=== PATIENT | male | born 1960 | race African-American/Black ===

== ENCOUNTER 2019-03-24 18:35 | Emergency (ER) | payer OTHER ==
[~2019-03-24] VITALS: Ht 177.8 cm; Wt 70.0 kg
[2019-03-24 18:41] VITALS: BP 165/103
[2019-03-24] MEDS ORDERED: HTN MED X2 (18:56)
[2019-03-24] MEDS ORDERED: SPIRIVA (18:56)
--- NOTE | 2019-03-24 18:58 | NUR ---
PT BIBA FOR RIGHT SIDED INGUINAL HERNIA PAIN. HX BILAT INGUINAL HERNIAS. PT STATES HERNIA "POPPED OUT TODAY AND WON'T GO BACK IN." PT STATES HE WILL BE BACK IN [place] IN A FEW DAYS AND WILL GET SURGERY THEN. PT CONNECTED TO [facility]. VSS. DR. PUGH TO BS FOR ASSESSMENT. EDMD WHITNEY TO REDUCE BILAT HERNIAS AT BS. PER EDMD, PLAN TO OBS FOR AT LEAST HLAF AN HOUR. PT CALM AND WATCHING TV AT THIS TIME.
--- NOTE | 2019-03-24 19:40 | NUR ---
pt up to rr. pt states bilat hernias are "popped back out." will notify edmd.
[2019-03-24] MEDS ORDERED: IBUPROFEN 800 MG TABLET ONE (20:44)
[2019-03-24] MEDS ORDERED: IBUPROFEN 800 MG TABLET PO ONE (21:00)
--- NOTE | 2019-03-24 21:03 | NUR ---
PT UPSET WHEN OFFERED PAIN MEDICATION. PT STATES HE CANNOT TAKE IBUPROFEN AND STATED HE WAS "JUST GOING TO CHECK OUT." PT SIGNED AMA FORM AND GOT DRESSED. PT DEMANDED TAXI VOUCHER. TAXI VOUCHER PROVIDED BUT PT DOESN'T KNOW WHERE HE WANTS TO GO. ANOTHER RN ATTEMPTED TO ASK PT ADDRESS WHERE TAXI CAN TAKE HIM AND WAS ABLE TO OBTAIN A LOCATION. PT ESCORTED TO EXIT WITHOUT ISSUES.
== END 2019-03-24 21:11 | disposition home or self-care (01) ==
LOC: ED 18:51
DX: R10.30 Lower abdominal pain, unspecified (principal); J45.909 Unspecified asthma, uncomplicated; F17.200 Nicotine dependence, unspecified, uncomplicated
CPT/HCPCS: 99283

== ENCOUNTER 2019-04-09 16:21 | Emergency (ER) | payer OTHER ==
[~2019-04-09] VITALS: Ht 177.8 cm; Wt 80.0 kg
[~2019-04-09 16:21] MED LIST: HTN MED X2; SPIRIVA
--- NOTE | 2019-04-09 16:41 | NUR ---
GOWN PROVIDED, PT ATTEMPTING TO REDUCE HERNIA ON OWN. CALL LIGHT WITHIN REACH.
--- NOTE | 2019-04-09 17:07 | NUR ---
REPORT TO AMPARO ANGULO, TRANSFER OF CARE AT THIS TIME.
[2019-04-09 17:35] VITALS: BP 176/96
== END 2019-04-09 17:38 | disposition home or self-care (01) ==
LOC: ED 17:32
DX: K40.21 Bilateral inguinal hernia, without obstruction or gangrene, recurrent (principal); R10.32 Left lower quadrant pain; R10.31 Right lower quadrant pain; J45.909 Unspecified asthma, uncomplicated; F17.200 Nicotine dependence, unspecified, uncomplicated
CPT/HCPCS: 99283

== ENCOUNTER 2019-04-11 01:51 | Observation (INO) | payer OTHER ==
[~2019-04-11] VITALS: Ht 177.8 cm; Wt 77.0 kg
--- NOTE | 2019-04-11 01:58 | NUR ---
BIB [facility] WITH ROOM AIR SATS AT 83%. EMS GAVE 2 NEB TREATMENTS. PT WAS SEEN HERE RECENTLY FOR INGUINAL HERNIAS. PT IN ACUTE DISTRESS. ER MD CASTILLO IN TO ASSESS
[2019-04-11] MEDS ORDERED: HYDROmorphone 1 MG/ML, 1ML VIAL ONE (02:00)
[2019-04-11] MEDS ORDERED: HYDROmorphone 1 MG/ML, 1ML VIAL IVPush PRN (02:30)
--- NOTE | 2019-04-11 02:34 | NUR ---
PT CALMED AND REPORTS PAIN RELIEF AFTER MEDICATION FOR PAIN
[2019-04-11 02:42] LABS: BASOPHILS # (AUTO) 0.05 x10^3/uL (0-0.1); BASOPHILS % (AUTO) 1 % (0-1); EOSINOPHILS # (AUTO) 0.25 x10^3/uL (0-0.4); EOSINOPHILS % (AUTO) 4 % (1-7); LYMPHOCYTES # (AUTO) 2.11 x10^3/uL (1-3.4); LYMPHOCYTES % (AUTO) 30 % (22-44); MD NO; MEAN CORPUSCULAR HEMOGLOBIN 25.2 pg (27.5-34.5); MEAN CORPUSCULAR HGB CONC 31.3 g/dL (33.2-36.2); MEAN CORPUSCULAR VOLUME 80.5 fL (81-97); MEAN PLATELET VOLUME 6.9 fL (7.4-10.4); MONOCYTES # (AUTO) 0.56 x10^3/uL (0.2-0.8); MONOCYTES % (AUTO) 8 % (2-9); NEUTROPHILS # (AUTO) 4.09 x10^3/uL (1.8-6.8); NEUTROPHILS % (AUTO) 58 % (42-75); PLATELET COUNT 288 x10^3/uL (130-400); RED BLOOD COUNT 4.49 x10^6/uL (4.38-5.82); RED CELL DISTRIBUTION WIDTH 15.9 % (9.4-14.8)
[2019-04-11 02:50] LABS: ALBUMIN 3.6 g/dL (3.4-5.0); ANION GAP 6 mmol/L (5-15); CALCIUM 8.6 mg/dL (8.5-10.1); CHLORIDE 108 mmol/L (98-107); CREATININE 1.51 mg/dL (0.7-1.3)
[2019-04-11 02:54] LABS: TROPONIN I 0.109 ng/mL (0.000-0.045)
[2019-04-11] MEDS ORDERED: methylPREDNISolone SOD SUCC 125 MG/2 ML ONE (03:19)
--- NOTE | 2019-04-11 03:25 | NUR ---
PT RESTLESS AND STATES THAT HIS PAIN IS RETURNING. PT STILL REQUIRING O2 VIA NC @ 3L. PT AT 85% ON ROOM AIR.
[2019-04-11] MEDS ORDERED: AZITHROMYCIN 500 MG in SODIUM CHLORIDE 0.9% 250 ML IVPB ONE (03:30)
[2019-04-11] MEDS ORDERED: methylPREDNISolone SOD SUCC 125 MG/2 ML IVPush ONE (03:30)
[2019-04-11] MEDS ORDERED: BISACODYL 10 MG SUPP PR PRN (04:00)
[2019-04-11] MEDS ORDERED: ONDANSETRON 2MG/ML, 2ML IVPush PRN (04:00)
[2019-04-11] MEDS ORDERED: OXYcodone IR 5MG TABLET PO PRN (04:00)
[2019-04-11] MEDS ORDERED: DOCUSATE 100 MG CAPSULE PO PRN (04:00)
[2019-04-11] MEDS ORDERED: ONDANSETRON ODT 4 MG PO PRN (04:00)
[2019-04-11] MEDS ORDERED: hydrALAzine 20 MG/ML, 1ML IVPush PRN (04:00)
[2019-04-11] MEDS ORDERED: NITROGLYCERIN 0.4 MG BOTTLE (25 TABS) SL PRN (04:00)
[2019-04-11] MEDS: NICOTINE 7 MG/24 HR PATCH.TD24 TD SCH (04:00)
[2019-04-11] MEDS ORDERED: POLYETHYLENE GLYCOL 17 GM PACKET PO PRN (04:00)
[2019-04-11] MEDS ORDERED: PROMETHAZINE 25 MG/ML, 1ML IM PRN (04:00)
[2019-04-11] MEDS ORDERED: ACETAMINOPHEN 325 MG TABLET PO PRN (04:00)
--- NOTE | 2019-04-11 04:03 | NUR ---
REPORT TO KEV CRAIG
[2019-04-11 04:21] VITALS: BP 159/109
[2019-04-11 04:50] LABS: FREE T4 (FREE THYROXINE) 1.08 ng/dL (0.76-1.46)
[2019-04-11] MEDS: methylPREDNISolone SOD SUCC 125 MG/2 ML IVPush SCH ×4 (04:51→21:13)
[2019-04-11] MEDS: HEPARIN 5,000 UNITS/ML, 1ML SQ SCH ×3 (04:52→21:19)
[2019-04-11] MEDS: AMLODIPINE 5 MG TABLET PO SCH ×3 (04:52→21:12)
[2019-04-11 05:13] LABS: MICROSCOPIC NOT IND
[2019-04-11 05:15] LABS: CULTURE INDICATED? NO
[2019-04-11 05:28] LABS: AMPHETAMINE SCREEN, URINE Negative (Negative); BARBITURATE SCREEN, URINE Negative (Negative); BENZODIAZEPINE SCREEN, URINE Negative (Negative); CANNABINOID SCREEN, URINE Positive (Negative); COCAINE SCREEN, URINE Negative (Negative)
[2019-04-11 05:32] LABS: METHADONE SCREEN, URINE Negative (Negative); OPIATE SCREEN, URINE Positive (Negative)
[2019-04-11] MEDS: CARVEDILOL 3.125 MG TABLET PO SCH ×2 (05:44→17:30)
[2019-04-11] MEDS: ASPIRIN 325 MG TABLET EC PO SCH (05:44)
[2019-04-11 06:13] LABS: TROPONIN I 0.101 ng/mL (0.000-0.045)
[2019-04-11] MEDS: ALBUTEROL SULFATE 2.5 MG/3 ML NPPB SCH ×4 (06:46→18:51)
[2019-04-11 07:40] VITALS: BP 161/95
[2019-04-11] MEDS: morphine SULFATE 10 MG/ML, 1ML IVPush PRN ×5 (07:55→21:13)
[2019-04-11 12:49] LABS: TROPONIN I 0.098 ng/mL (0.000-0.045)
[2019-04-11 13:38] VITALS: BP 160/97
[2019-04-11 20:27] VITALS: BP 149/91
[2019-04-12] MEDS: morphine SULFATE 10 MG/ML, 1ML IVPush PRN ×2 (01:00→04:59)
[2019-04-12 01:14] VITALS: BP 156/95
[2019-04-12] MEDS: NICOTINE 7 MG/24 HR PATCH.TD24 TD SCH (03:34)
[2019-04-12] MEDS: HEPARIN 5,000 UNITS/ML, 1ML SQ SCH (04:59)
[2019-04-12] MEDS: methylPREDNISolone SOD SUCC 125 MG/2 ML IVPush SCH ×2 (04:59→10:59)
[2019-04-12] MEDS: CARVEDILOL 3.125 MG TABLET PO SCH (05:00)
[2019-04-12] MEDS: ASPIRIN 325 MG TABLET EC PO SCH (05:00)
[2019-04-12 05:28] LABS: BASOPHILS # (AUTO) 0.02 x10^3/uL (0-0.1); BASOPHILS % (AUTO) 0 % (0-1); EOSINOPHILS # (AUTO) 0.05 x10^3/uL (0-0.4); EOSINOPHILS % (AUTO) 1 % (1-7); LYMPHOCYTES % (AUTO) 9 % (22-44); MD NO; MEAN CORPUSCULAR HEMOGLOBIN 25.5 pg (27.5-34.5); MEAN CORPUSCULAR HGB CONC 31.4 g/dL (33.2-36.2); MEAN CORPUSCULAR VOLUME 81.1 fL (81-97); MONOCYTES # (AUTO) 0.32 x10^3/uL (0.2-0.8); MONOCYTES % (AUTO) 3 % (2-9); NEUTROPHILS # (AUTO) 8.61 x10^3/uL (1.8-6.8); NEUTROPHILS % (AUTO) 87 % (42-75); PLATELET COUNT 270 x10^3/uL (130-400); RED BLOOD COUNT 4.01 x10^6/uL (4.38-5.82); RED CELL DISTRIBUTION WIDTH 15.8 % (9.4-14.8)
[2019-04-12 05:35] LABS: ALBUMIN 3.3 g/dL (3.4-5.0); ANION GAP 5 mmol/L (5-15); CALCIUM 8.7 mg/dL (8.5-10.1); CHLORIDE 102 mmol/L (98-107)
[2019-04-12 05:39] LABS: ALANINE AMINOTRANSFERASE 21 U/L (12-78); ALKALINE PHOSPHATASE 53 U/L (45-117); BILIRUBIN,TOTAL 0.3 mg/dL (0.2-1.0); CHOLESTEROL, TOTAL 185 mg/dL (140-239); HDL CHOL % 34 % (26-37); HDL CHOLESTEROL (DIRECT) 62 mg/dL (40-60); LDL CHOLESTEROL,CALCULATED 111 mg/dL (54-169); LDL/HDL RATIO 1.8 (0.5-3.0); TOTAL PROTEIN 7.6 g/dL (6.4-8.2); TRIGLYCERIDES 62 mg/dL (50-200); VLDL CHOLESTEROL 12 mg/dL (0-25)
[2019-04-12] MEDS: ALBUTEROL SULFATE 2.5 MG/3 ML NPPB SCH ×2 (06:38→10:26)
[2019-04-12 08:32] VITALS: BP 158/97
[2019-04-12] MEDS: AMLODIPINE 5 MG TABLET PO SCH (10:59)
[2019-04-12 11:18] VITALS: BP 153/94
[2019-04-12] MEDS ORDERED: OXYcodone/APAP 5/325MG TABLET PO PRN (13:30)
== END 2019-04-12 13:50 | disposition left against medical advice (07) ==
LOC: ED 02:40 → EDIP 03:47 → INTOOBSV 03:47 → 5SO 04:11
PROVIDERS: ADMIT Internal Medicine; ATTEND Family Medicine
DX: J44.1 Chronic obstructive pulmonary disease with (acute) exacerbation (principal); I21.A1 Myocardial infarction type 2; N17.0 Acute kidney failure with tubular necrosis; D50.9 Iron deficiency anemia, unspecified; D53.9 Nutritional anemia, unspecified; F17.210 Nicotine dependence, cigarettes, uncomplicated; G89.29 Other chronic pain; K40.20 Bilateral inguinal hernia, without obstruction or gangrene, not specified as recurrent; M54.9 Dorsalgia, unspecified; R09.02 Hypoxemia; Z59.0 Homelessness; Z91.14 Patient's other noncompliance with medication regimen; I11.0 Hypertensive heart disease with heart failure; I50.9 Heart failure, unspecified
CPT/HCPCS: 36415; 36600; 71045; 80048; 80053; 80061; 80307; 81003; 82040; 82728; 82803; 83036; 83540; 83550; 83735; 83880; 84439; 84443; 84466; 84484; 85025; 87040; 93005; 93306; 94640; 96365; 96372; 96375; 96376; 97162; 97166; 99285; G0378; J0360; J0456; J1170; J1644; J2270; J2930; J7050; J7613

== ENCOUNTER 2019-05-06 18:36 | Inpatient (IN) | payer OTHER ==
[~2019-05-06] VITALS: Ht 177.8 cm; Wt 75.0 kg
[2019-05-06] MEDS ORDERED: IBUPROFEN 600 MG TABLET PO ONE (19:00)
[2019-05-06] MEDS ORDERED: ACETAMINOPHEN 500 MG TABLET PO ONE (19:00)
[2019-05-06] MEDS ORDERED: ACETAMINOPHEN 500 MG TABLET ONE (19:39)
[2019-05-06] MEDS ORDERED: IBUPROFEN 600 MG TABLET ONE (19:39)
--- NOTE | 2019-05-06 20:43 | NUR ---
SPLINT APPLIED. +PMS PER & POST APPLICATION.
--- NOTE | 2019-05-06 21:50 | NUR ---
Paola RN: Attempting to d/c pt home. First contact with pt. Pt c/o SOB--states new onset. States he was just admitted for 4 days at [facility] for same. Wheezes noted t/o all samuels. RA 87%. Pt placed on monitor-sinus tachy. Placed on 2L NC. ERP notified of pt condition and will recheck before d/c home. Primary RN, Ninoska, val.
[2019-05-06] MEDS: ALBUTEROL/IPRATROPIUM 2.5MG/0.5MG, 3 ML NPPB SCH (22:17)
--- NOTE | 2019-05-06 22:22 | NUR ---
RT AT BS, AWARE OF PLAN FOR TX & POSSIBLE DC HOME
[2019-05-06] MEDS ORDERED: ALBUTEROL/IPRATROPIUM 2.5MG/0.5MG, 3 ML ONE (22:23)
--- NOTE | 2019-05-06 22:35 | NUR ---
RTT COMPLETE. ASSITED TO RESTROOM VIA W/C. REFUSING PREDNISONE, STATES THAT WHAT THEY GAVE ME OVER AT [facility], AND IT MADE ME FEEL WORSE.
--- NOTE | 2019-05-06 23:51 | NUR ---
REPORT CALLED. ADMITTING AT BS.
[2019-05-07] MEDS ORDERED: ONDANSETRON ODT 4 MG PO PRN
[2019-05-07] MEDS ORDERED: IBUPROFEN 600 MG TABLET PO PRN
[2019-05-07] MEDS ORDERED: BISACODYL 10 MG SUPP PR PRN
[2019-05-07] MEDS ORDERED: POLYETHYLENE GLYCOL 17 GM PACKET PO PRN
[2019-05-07] MEDS: NICOTINE 7 MG/24 HR PATCH.TD24 TD SCH
[2019-05-07] MEDS ORDERED: GUAIFENESIN/DM 200-20MG, 10ML UDC PO PRN
[2019-05-07 00:23] VITALS: BP 154/91
[2019-05-07] MEDS: ALBUTEROL/IPRATROPIUM 2.5MG/0.5MG, 3 ML NPPB SCH ×5 (00:42→20:00)
[2019-05-07] MEDS: OXYcodone/APAP 5/325MG TABLET PO PRN ×4 (01:09→19:43)
[2019-05-07 05:01] LABS: BASOPHILS # (AUTO) 0.01 x10^3/uL (0-0.1); BASOPHILS % (AUTO) 0 % (0-1); EOSINOPHILS # (AUTO) 0.01 x10^3/uL (0-0.4); EOSINOPHILS % (AUTO) 0 % (1-7); LYMPHOCYTES # (AUTO) 0.39 x10^3/uL (1-3.4); LYMPHOCYTES % (AUTO) 5 % (22-44); MD NO; MEAN CORPUSCULAR HEMOGLOBIN 25.4 pg (27.5-34.5); MEAN CORPUSCULAR HGB CONC 31.3 g/dL (33.2-36.2); MEAN CORPUSCULAR VOLUME 81.2 fL (81-97); MEAN PLATELET VOLUME 7.5 fL (7.4-10.4); MONOCYTES # (AUTO) 0.25 x10^3/uL (0.2-0.8); MONOCYTES % (AUTO) 4 % (2-9); NEUTROPHILS # (AUTO) 6.58 x10^3/uL (1.8-6.8); NEUTROPHILS % (AUTO) 91 % (42-75); PLATELET COUNT 351 x10^3/uL (130-400); RED BLOOD COUNT 5.06 x10^6/uL (4.38-5.82); RED CELL DISTRIBUTION WIDTH 17.3 % (9.4-14.8)
[2019-05-07 05:09] LABS: CHLORIDE 105 mmol/L (98-107)
[2019-05-07 05:14] LABS: ALANINE AMINOTRANSFERASE 49 U/L (12-78); ALBUMIN 3.5 g/dL (3.4-5.0); ALKALINE PHOSPHATASE 66 U/L (45-117); ANION GAP 6 mmol/L (5-15); BILIRUBIN,TOTAL 0.4 mg/dL (0.2-1.0); CALCIUM 8.8 mg/dL (8.5-10.1); CREATININE 1.69 mg/dL (0.7-1.3)
[2019-05-07 08:00] VITALS: BP 128/82
[2019-05-07] MEDS ORDERED: SODIUM CHLORIDE 0.9% 1,000 ML IV SCH (08:30)
[2019-05-07] MEDS ORDERED: MEDROL 4MG DOSEPAK PO ONE (09:00)
[2019-05-07] MEDS: SENNA/DOCUSATE TABLET PO SCH (09:00)
[2019-05-07] MEDS: SODIUM CHLORIDE FLUSH 10ML SYR IVF SCH ×2 (09:39→21:13)
[2019-05-07] MEDS: ASPIRIN 81 MG TABLET EC PO SCH (09:55)
[2019-05-07] MEDS: DOXYCYCLINE 100MG TABLET PO SCH ×2 (09:55→21:13)
[2019-05-07] MEDS: ENOXAPARIN 40 MG/0.4 ML SQ SCH (09:56)
[2019-05-07 14:00] VITALS: BP 121/74
[2019-05-07 20:09] VITALS: BP 145/95
[2019-05-08] MEDS: NICOTINE 7 MG/24 HR PATCH.TD24 TD SCH
[2019-05-08] MEDS: OXYcodone/APAP 5/325MG TABLET PO PRN ×5 (00:01→21:10)
[2019-05-08 01:55] VITALS: BP 154/100
[2019-05-08] MEDS: ASPIRIN 81 MG TABLET EC PO SCH (05:49)
[2019-05-08 06:37] LABS: ANION GAP 5 mmol/L (5-15); CHLORIDE 108 mmol/L (98-107)
[2019-05-08 06:39] LABS: CREATININE 1.47 mg/dL (0.7-1.3)
[2019-05-08] MEDS: ALBUTEROL/IPRATROPIUM 2.5MG/0.5MG, 3 ML NPPB SCH ×4 (07:08→19:24)
[2019-05-08 07:20] VITALS: BP 162/94
[2019-05-08] MEDS: SODIUM CHLORIDE FLUSH 10ML SYR IVF SCH ×2 (08:29→20:54)
[2019-05-08] MEDS: SENNA/DOCUSATE TABLET PO SCH (08:35)
[2019-05-08] MEDS: DOXYCYCLINE 100MG TABLET PO SCH ×2 (08:35→20:56)
[2019-05-08] MEDS: ENOXAPARIN 40 MG/0.4 ML SQ SCH (08:36)
[2019-05-08 15:59] VITALS: BP 152/88
[2019-05-08] MEDS: METOPROLOL TARTRATE 25 MG TABLET PO SCH (17:30)
[2019-05-08 20:36] VITALS: BP 160/95
[2019-05-09] MEDS: NICOTINE 7 MG/24 HR PATCH.TD24 TD SCH
[2019-05-09] MEDS: ALBUTEROL/IPRATROPIUM 2.5MG/0.5MG, 3 ML NPPB SCH ×4 (01:34→15:00)
[2019-05-09] MEDS: OXYcodone/APAP 5/325MG TABLET PO PRN ×3 (01:44→12:22)
[2019-05-09 03:36] VITALS: BP 149/83
[2019-05-09 05:46] LABS: ANION GAP 3 mmol/L (5-15); CALCIUM 8.4 mg/dL (8.5-10.1); CHLORIDE 107 mmol/L (98-107)
[2019-05-09 05:48] LABS: CREATININE 1.41 mg/dL (0.7-1.3)
[2019-05-09] MEDS: METOPROLOL TARTRATE 25 MG TABLET PO SCH (06:14)
[2019-05-09] MEDS: ASPIRIN 81 MG TABLET EC PO SCH (06:14)
[2019-05-09] MEDS: SODIUM CHLORIDE FLUSH 10ML SYR IVF SCH (07:09)
[2019-05-09 07:53] VITALS: BP 151/92
[2019-05-09] MEDS: DOXYCYCLINE 100MG TABLET PO SCH (09:40)
[2019-05-09] MEDS: ENOXAPARIN 40 MG/0.4 ML SQ SCH (09:40)
[2019-05-09] MEDS: SENNA/DOCUSATE TABLET PO SCH (09:40)
[2019-05-09] MEDS ORDERED: METH4TAB2 PO (11:22)
[2019-05-09] MEDS ORDERED: DOXY100T23 PO ×2 (11:22)
[2019-05-09] MEDS ORDERED: OXYcodone/APAP 5/325MG PO (11:22)
[2019-05-09] MEDS ORDERED: ASPI81TA45 PO (11:22)
[2019-05-09] MEDS ORDERED: METO25TA35 PO (11:22)
[2019-05-09 12:54] VITALS: BP 154/87
[2019-05-10] MEDS ORDERED: METO-99 PO (10:55)
[2019-05-10] MEDS ORDERED: PRED20TA PO (10:56)
[2019-05-10] MEDS ORDERED: AZIT500T PO (10:57)
[2019-05-10] MEDS ORDERED: ONDA4TAB13 SL (10:58)
[2019-05-10] MEDS ORDERED: IBUP-1222 PO (10:58)
[2019-05-10] MEDS ORDERED: HYDR25TA6 PO (10:59)
[2019-05-10] MEDS ORDERED: LISI-170 PO (10:59)
[2019-05-10] MEDS ORDERED: METO25TA35 PO (11:00)
[2019-05-10] MEDS ORDERED: AMLO-150 PO (11:01)
== END 2019-05-09 17:15 | disposition home or self-care (01) | DRG 189 ==
LOC: ED 19:03 → EDIP 23:21 → 3N 05-07 00:05 → DCLOUNGE 05-09 16:50
PROVIDERS: ADMIT Internal Medicine; ATTEND Internal Medicine
PROC: 2W3SX1Z Immobilization of Right Foot using Splint (ICD-10-PCS; principal; 2019-05-06)
DX: J96.01 Acute respiratory failure with hypoxia (principal); J44.1 Chronic obstructive pulmonary disease with (acute) exacerbation; N17.9 Acute kidney failure, unspecified; S82.844A Nondisplaced bimalleolar fracture of right lower leg, initial encounter for closed fracture; F17.210 Nicotine dependence, cigarettes, uncomplicated; G89.29 Other chronic pain; I10 Essential (primary) hypertension; I25.2 Old myocardial infarction; S82.891A Other fracture of right lower leg, initial encounter for closed fracture; S92.354A Nondisplaced fracture of fifth metatarsal bone, right foot, initial encounter for closed fracture; Z88.8 Allergy status to other drugs, medicaments and biological substances; Z91.018 Allergy to other foods; W07.XXXA Fall from chair, initial encounter; Y93.89 Activity, other specified; Y92.89 Other specified places as the place of occurrence of the external cause; Y99.8 Other external cause status; Z59.0 Homelessness
CPT/HCPCS: 36415; 73610; 73630; 99285; J7620; 71045; 80048; 80053; 85025; 93005; 94640; G0378; J1650; J7509; J7030; J7512

== ENCOUNTER 2019-05-10 07:22 | Inpatient (IN) | payer OTHER ==
[~2019-05-10] VITALS: Ht 177.8 cm; Wt 96.2 kg
[~2019-05-10 07:22] MED LIST changes: +ASPI81TA45 PO; +DOXY100T23 PO; +METH4TAB2 PO; +METO25TA35 PO; +OXYcodone/APAP 5/325MG PO
--- NOTE | 2019-05-10 07:45 | NUR ---
DIMITRI. REPORT RECEIVED FROM EMS. PT C/O SOB WITH PRODUCTIVE COUGH. PT WAS DC FROM THIS HOSPITAL YESTERDAY D/T RIGHT LEG FRACTURE. PT STATES " I HAVE PRESSURE PAIN ON MY CHEST." HX OF MN. PT'S AOX4. RESPS EVEN AND UNLABORED. ALL MONITORS IN PLACE. CALL LIGHT WITHIN REACH. NSR ON SCALE MANAGER RATE 90'S AT THIS TIME.
--- NOTE | 2019-05-10 07:48 | NUR ---
EKG DONE AT BEDSIDE BY EMT.
[2019-05-10] MEDS ORDERED: NITROGLYCERIN SINGLE TAB 0.4 MG SL ONE (07:49)
[2019-05-10] MEDS ORDERED: MORPHINE SULFATE 4 MG/ML, 1ML ONE ×2 (07:50→10:24)
[2019-05-10] MEDS ORDERED: ASPIRIN 81 MG TABLET CHEW ONE (07:50)
[2019-05-10] MEDS: MORPHINE SULFATE 4 MG/ML, 1ML IVPush PRN ×2 (07:52→10:27)
--- NOTE | 2019-05-10 07:57 | NUR ---
PT MEDICATED PER EMAR. PT TOLERATED WELL.
[2019-05-10] MEDS ORDERED: ASPIRIN 81 MG TABLET CHEW PO ONE (08:00)
[2019-05-10] MEDS ORDERED: NITROGLYCERIN SINGLE TAB 0.4 MG SL PRN (08:00)
[2019-05-10] MEDS ORDERED: SODIUM CHLORIDE FLUSH 10ML SYR IVF ONE (08:00)
[2019-05-10] MEDS ORDERED: ALBUTEROL/IPRATROPIUM 2.5MG/0.5MG, 3 ML NPPB SCH (08:00)
[2019-05-10] MEDS ORDERED: ALBUTEROL/IPRATROPIUM 2.5MG/0.5MG, 3 ML ONE (08:02)
[2019-05-10 08:12] LABS: ALANINE AMINOTRANSFERASE 59 U/L (12-78); ALBUMIN 3.5 g/dL (3.4-5.0); ANION GAP 7 mmol/L (5-15); CALCIUM 8.9 mg/dL (8.5-10.1); CHLORIDE 102 mmol/L (98-107); CREATININE 1.39 mg/dL (0.7-1.3)
[2019-05-10 08:17] LABS: ALKALINE PHOSPHATASE 69 U/L (45-117); BILIRUBIN,TOTAL 0.3 mg/dL (0.2-1.0); TOTAL PROTEIN 7.8 g/dL (6.4-8.2); TROPONIN I 0.081 ng/mL (0.000-0.045)
--- NOTE | 2019-05-10 08:17 | NUR ---
RT AT BEDSIDE AT THIS TIME.
[2019-05-10 08:19] LABS: BASOPHILS # (AUTO) 0.06 x10^3/uL (0-0.1); BASOPHILS % (AUTO) 1 % (0-1); EOSINOPHILS % (AUTO) 3 % (1-7); LYMPHOCYTES # (AUTO) 2.63 x10^3/uL (1-3.4); LYMPHOCYTES % (AUTO) 36 % (22-44); MD NO; MEAN CORPUSCULAR HEMOGLOBIN 25.2 pg (27.5-34.5); MEAN CORPUSCULAR HGB CONC 31.5 g/dL (33.2-36.2); MEAN CORPUSCULAR VOLUME 80.2 fL (81-97); MEAN PLATELET VOLUME 6.7 fL (7.4-10.4); MONOCYTES % (AUTO) 14 % (2-9); NEUTROPHILS # (AUTO) 3.47 x10^3/uL (1.8-6.8); NEUTROPHILS % (AUTO) 47 % (42-75); PLATELET COUNT 345 x10^3/uL (130-400); RED BLOOD COUNT 4.85 x10^6/uL (4.38-5.82); RED CELL DISTRIBUTION WIDTH 17.1 % (9.4-14.8)
--- NOTE | 2019-05-10 09:26 | NUR ---
PT IN CT NOW.
[2019-05-10] MEDS ORDERED: OMNIPAQUE 350 MG/ML, 100ML BOTTLE ONE (09:54)
--- NOTE | 2019-05-10 10:31 | NUR ---
PT REQUESTING PAIN MED. PT MEDICATED PER EMAR FOR PAIN. PT TOLERATED WELL.
[2019-05-10] MEDS ORDERED: METO-99 PO (10:55)
[2019-05-10] MEDS ORDERED: PRED20TA PO (10:56)
[2019-05-10] MEDS ORDERED: AZIT500T PO (10:57)
[2019-05-10] MEDS ORDERED: IBUP-1222 PO (10:58)
[2019-05-10] MEDS ORDERED: ONDA4TAB13 SL (10:58)
[2019-05-10] MEDS ORDERED: LISI-170 PO (10:59)
[2019-05-10] MEDS ORDERED: HYDR25TA6 PO (10:59)
[2019-05-10] MEDS ORDERED: METO25TA35 PO (11:00)
[2019-05-10] MEDS ORDERED: AMLO-150 PO (11:01)
--- NOTE | 2019-05-10 11:04 | NUR ---
HOSPITALIST AT BEDSIDE AT THIS TIME.
--- NOTE | 2019-05-10 11:15 | NUR ---
dr fletcher spoke with dr duran
--- NOTE | 2019-05-10 11:21 | NUR ---
URINAL AT BEDSIDE AT THIS TIME.
[2019-05-10] MEDS ORDERED: SODIUM CHLORIDE FLUSH 10ML SYR IVF PRN (11:30)
[2019-05-10] MEDS ORDERED: ACETAMINOPHEN 325 MG TABLET PO PRN (11:30)
[2019-05-10] MEDS ORDERED: GUAIFENESIN/DM 200-20MG, 10ML UDC PO PRN (11:30)
[2019-05-10] MEDS ORDERED: ENOXAPARIN 40 MG/0.4 ML ONE (11:41)
[2019-05-10] MEDS ORDERED: NICOTINE 14MG/24 HR PATCH.TD24 ONE (11:41)
--- NOTE | 2019-05-10 11:50 | NUR ---
MEDICATION ORDERED FROM PHARMACY AT THIS TIME.
[2019-05-10] MEDS ORDERED: ENOXAPARIN 30 MG/0.3 ML SQ SCH (12:00)
[2019-05-10 12:03] LABS: TROPONIN I 0.077 ng/mL (0.000-0.045)
--- NOTE | 2019-05-10 12:09 | NUR ---
meal tray provided at this time.
--- NOTE | 2019-05-10 12:28 | NUR ---
report given to susanna gold. all questions answered.
--- NOTE | 2019-05-10 12:46 | NUR ---
TASK RN: Provided medications per EMAR. KARYNN. No needs expressed. Pt eating lunch. Pt resting on gurney connected to NIBP cuff, continous pulse ox monitor, and hall monitor. Pt pending transport to transfer from ED to floor.
[2019-05-10] MEDS: NICOTINE 14MG/24 HR PATCH.TD24 TD SCH (12:47)
[2019-05-10 13:52] VITALS: BP 153/94
[2019-05-10] MEDS: OXYcodone/APAP 5/325MG TABLET PO PRN ×2 (14:50→20:04)
[2019-05-10 19:48] LABS: TROPONIN I 0.085 ng/mL (0.000-0.045)
[2019-05-10 19:56] VITALS: BP 152/95
[2019-05-10] MEDS: ATORVASTATIN 40 MG TABLET PO SCH (20:03)
[2019-05-10 20:07] VITALS: BP 152/95
[2019-05-10] MEDS: BUDESONIDE 0.5 MG/2 ML INHA NPPB SCH (20:46)
[2019-05-10] MEDS: ALBUTEROL SULFATE 2.5 MG/3 ML NPPB SCH (20:46)
[2019-05-11 03:00] VITALS: BP 166/96
[2019-05-11] MEDS: ALBUTEROL SULFATE 2.5 MG/3 ML NPPB SCH ×5 (03:15→20:41)
[2019-05-11 05:03] LABS: BASOPHILS # (AUTO) 0.07 x10^3/uL (0-0.1); BASOPHILS % (AUTO) 1 % (0-1); EOSINOPHILS # (AUTO) 0.32 x10^3/uL (0-0.4); EOSINOPHILS % (AUTO) 5 % (1-7); LYMPHOCYTES # (AUTO) 3.01 x10^3/uL (1-3.4); LYMPHOCYTES % (AUTO) 49 % (22-44); MD NO; MEAN CORPUSCULAR HEMOGLOBIN 25.3 pg (27.5-34.5); MEAN CORPUSCULAR VOLUME 81.6 fL (81-97); MEAN PLATELET VOLUME 7.1 fL (7.4-10.4); MONOCYTES # (AUTO) 0.75 x10^3/uL (0.2-0.8); MONOCYTES % (AUTO) 12 % (2-9); NEUTROPHILS # (AUTO) 2.01 x10^3/uL (1.8-6.8); NEUTROPHILS % (AUTO) 33 % (42-75); PLATELET COUNT 319 x10^3/uL (130-400); RED BLOOD COUNT 4.41 x10^6/uL (4.38-5.82); RED CELL DISTRIBUTION WIDTH 17.1 % (9.4-14.8)
[2019-05-11 05:08] LABS: ANION GAP 5 mmol/L (5-15); CALCIUM 8.2 mg/dL (8.5-10.1); CHLORIDE 103 mmol/L (98-107); CHOLESTEROL, TOTAL 168 mg/dL (140-239); CREATININE 1.32 mg/dL (0.7-1.3); TRIGLYCERIDES 119 mg/dL (50-200); VLDL CHOLESTEROL 24 mg/dL (0-25)
[2019-05-11 05:10] LABS: CHOL/HDL RATIO 3.4; HDL CHOL % 29 % (26-37); HDL CHOLESTEROL (DIRECT) 49 mg/dL (40-60); LDL CHOLESTEROL,CALCULATED 95 mg/dL (54-169); LDL/HDL RATIO 1.9 (0.5-3.0)
[2019-05-11] MEDS: ASPIRIN 81 MG TABLET EC PO SCH (06:26)
[2019-05-11] MEDS ORDERED: TIOT18CA INH (06:42)
[2019-05-11 07:05] VITALS: BP 175/111
[2019-05-11] MEDS: AMLODIPINE 5 MG TABLET PO SCH (08:06)
[2019-05-11] MEDS: DOXYCYCLINE 100MG TABLET PO SCH (08:06)
[2019-05-11] MEDS: LISINOPRIL 20 MG TABLET PO SCH (08:06)
[2019-05-11] MEDS: OXYcodone/APAP 5/325MG TABLET PO PRN ×4 (08:18→20:15)
[2019-05-11] MEDS: BUDESONIDE 0.5 MG/2 ML INHA NPPB SCH ×3 (08:40→20:41)
[2019-05-11] MEDS ORDERED: FLUTICASONE/VILANTEROL 200-25MCG/INH INH SCH (09:00)
[2019-05-11 09:27] VITALS: BP 163/109
[2019-05-11] MEDS ORDERED: hydrALAzine 20 MG/ML, 1ML IV ONE (10:00)
[2019-05-11] MEDS ORDERED: REGADENOSON 0.4 MG/5 ML SYRINGE ONE (10:32)
[2019-05-11] MEDS ORDERED: ENOXAPARIN 40 MG/0.4 ML SQ SCH (12:00)
[2019-05-11] MEDS: NICOTINE 14MG/24 HR PATCH.TD24 TD SCH (12:48)
[2019-05-11 14:05] VITALS: BP 140/83
[2019-05-11] MEDS ORDERED: METOPROLOL TARTRATE 25 MG TABLET ONE (15:50)
[2019-05-11] MEDS: METOPROLOL TARTRATE 25 MG TABLET PO SCH (16:04)
[2019-05-11 18:38] VITALS: BP 122/73
[2019-05-11] MEDS: ATORVASTATIN 40 MG TABLET PO SCH (20:15)
[2019-05-12] MEDS: OXYcodone/APAP 5/325MG TABLET PO PRN ×3 (00:26→10:07)
[2019-05-12 00:32] VITALS: BP 133/64
[2019-05-12] MEDS: ALBUTEROL SULFATE 2.5 MG/3 ML NPPB SCH ×2 (02:50→08:10)
[2019-05-12] MEDS: ASPIRIN 81 MG TABLET EC PO SCH (06:09)
[2019-05-12] MEDS: METOPROLOL TARTRATE 25 MG TABLET PO SCH (06:10)
[2019-05-12 07:41] VITALS: BP 119/73
[2019-05-12] MEDS: BUDESONIDE 0.5 MG/2 ML INHA NPPB SCH (08:10)
[2019-05-12] MEDS: AMLODIPINE 5 MG TABLET PO SCH (09:04)
[2019-05-12] MEDS: LISINOPRIL 20 MG TABLET PO SCH (09:04)
[2019-05-12] MEDS: DOXYCYCLINE 100MG TABLET PO SCH (09:04)
[2019-05-12] MEDS ORDERED: METO25TA35 PO (10:08)
[2019-05-12] MEDS: NICOTINE 14MG/24 HR PATCH.TD24 TD SCH (11:15)
== END 2019-05-12 12:53 | disposition home or self-care (01) | DRG 204 ==
LOC: ED 08:09 → EDIP 11:09 → 5SO 13:22 → DCLOUNGE 05-12 12:39
PROVIDERS: ADMIT Internal Medicine Infectious Disease; ATTEND Internal Medicine Infectious Disease
DX: R07.81 Pleurodynia (principal); I25.110 Atherosclerotic heart disease of native coronary artery with unstable angina pectoris; J44.1 Chronic obstructive pulmonary disease with (acute) exacerbation; F12.10 Cannabis abuse, uncomplicated; F17.210 Nicotine dependence, cigarettes, uncomplicated; I13.10 Hypertensive heart and chronic kidney disease without heart failure, with stage 1 through stage 4 chronic kidney disease, or unspecified chronic kidney disease; N18.3 Chronic kidney disease, stage 3 (moderate); R09.02 Hypoxemia; I25.2 Old myocardial infarction; Z59.0 Homelessness; Z82.49 Family history of ischemic heart disease and other diseases of the circulatory system; Z88.0 Allergy status to penicillin; Z91.018 Allergy to other foods; Z87.81 Personal history of (healed) traumatic fracture
CPT/HCPCS: 36415; 96374; 96376; 99285; J7613; J7620; J7626; 71045; 71275; 78452; 80048; 80053; 80061; 83690; 83880; 84484; 85025; 85379; 93005; 94640; G0378; J1650; J2785; Q9967; A9502; A9541; J0360; J2270; J7512

== ENCOUNTER 2019-05-14 07:06 | Emergency (ER) | payer OTHER ==
[~2019-05-14] VITALS: Ht 177.8 cm; Wt 70.5 kg
[~2019-05-14 07:06] MED LIST changes: +AMLO-150 PO; +AZIT500T PO; +HYDR25TA6 PO; +IBUP-1222 PO; +LISI-170 PO; +METO-99 PO; +ONDA4TAB13 SL; +PRED20TA PO; +TIOT18CA INH
--- NOTE | 2019-05-14 07:35 | NUR ---
patient coordinator: While assisting pt to ED eric, drug paraphenailia fell out of pt's pocket. Pt became irate at me when I told him that he could not have paraphenalia in his ED room with him and it would have to be give to security. Pt stated "If you had moved the wheel chair closer to the bed, that wouldn't have fallen out and you wouldn't have seen it." Security notified of paraphenalia. Pt in bed w/ bed rails up, NARD, call light in reach.
--- NOTE | 2019-05-14 07:39 | NUR ---
PT HERE WITH MULTIPLE COMPLAINTS- STATES HE RECENTLY BROKE HIS FOOT (PRESENTS IN A SPLINT ON LEFT LEG), AND WOKE UP WITH CP AFTER SLEEPING OUTSIDE ALL NIGHT. "MY HIGH BLOOD PRESSURE WENT UP AND MY LEG HAS BEEN IN PAIN." PT SITTING ON KARYNMark. STATES PAIN IS IN LEFT FOOT AND MID CHEST UNDER STERNUM. Addendum: 05/14/19 at 0741 by CHEYENNE CORRECTION- SPLINT IS ON RIGHT LEG WITH PAIN IN RIGHT LEG.
[2019-05-14 07:45] VITALS: BP 168/99
[2019-05-14] MEDS ORDERED: ACETAMINOPHEN 500 MG TABLET PO ONE (08:00)
[2019-05-14] MEDS ORDERED: ACETAMINOPHEN 500 MG TABLET ONE (08:07)
--- NOTE | 2019-05-14 08:10 | NUR ---
PT REFUSED MEDICATION AT THIS TIME. MD AWARE THAT PT WOULD LIKE TO SPEAK WITH HIM.
--- NOTE | 2019-05-14 08:47 | NUR ---
MD AT BEDSIDE SPEAKING WITH PT NOW.
--- NOTE | 2019-05-14 09:13 | NUR ---
PER MD PERFORM AN EKG AND DEPENDING ON RESULTS PT OKAY TO DC.
--- NOTE | 2019-05-14 09:22 | NUR ---
PT REFUSED EKG- STATES HE WANTS A CAB VOUCHER TO [facility] IN ORDER TO GO TO WALK IN CLINIC. PROVIDED WITH ONE.
--- NOTE | 2019-05-14 09:28 | NUR ---
PT REQUESTING TO SEE MD AGAIN. DC PAPERWORK HAS BEEN SIGNED, PT HAS ALL BELONGINGS. THIS RN LET PT KNOW HE IS DISCHARGED. PT STATES HE CAN WHEEL HIMSELF OUT OF THE HOSPITAL. SECURITY CALLED TO ESCORT PT OUT.
== END 2019-05-14 09:30 | disposition home or self-care (01) ==
LOC: ED 09:15
DX: S92.354A Nondisplaced fracture of fifth metatarsal bone, right foot, initial encounter for closed fracture (principal); S82.64XA Nondisplaced fracture of lateral malleolus of right fibula, initial encounter for closed fracture; S82.54XA Nondisplaced fracture of medial malleolus of right tibia, initial encounter for closed fracture; J44.9 Chronic obstructive pulmonary disease, unspecified; I10 Essential (primary) hypertension; X58.XXXA Exposure to other specified factors, initial encounter; Y93.89 Activity, other specified; Y92.89 Other specified places as the place of occurrence of the external cause; Y99.8 Other external cause status
CPT/HCPCS: 99283

== ENCOUNTER 2019-06-30 01:07 | Emergency (ER) | payer SELFPAY ==
[~2019-06-30] VITALS: Ht 180.3 cm; Wt 80.0 kg
[2019-06-30 01:18] VITALS: BP_SYST 157
--- NOTE | 2019-06-30 01:40 | NUR ---
Pt ambulatory in room. Pt reports he has been drinking tonight and started to feel unwell after drinking a [place] ice tea. Pt reports his last BM was diarrhea like in nature and that he "almost missed the toliet". Lab at bedside for draw. 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 Pt directed to restroom and supplies.
[2019-06-30 01:51] LABS: BASOPHILS # (AUTO) 0.04 x10^3/uL (0-0.1); BASOPHILS % (AUTO) 1 % (0-1); EOSINOPHILS # (AUTO) 0.43 x10^3/uL (0-0.4); EOSINOPHILS % (AUTO) 7 % (1-7); LYMPHOCYTES # (AUTO) 2.06 x10^3/uL (1-3.4); LYMPHOCYTES % (AUTO) 33 % (22-44); MD NO; MEAN CORPUSCULAR HEMOGLOBIN 25.5 pg (27.5-34.5); MEAN CORPUSCULAR HGB CONC 32.6 g/dL (33.2-36.2); MEAN CORPUSCULAR VOLUME 78.4 fL (81-97); MEAN PLATELET VOLUME 6.8 fL (7.4-10.4); MONOCYTES # (AUTO) 0.74 x10^3/uL (0.2-0.8); MONOCYTES % (AUTO) 12 % (2-9); NEUTROPHILS # (AUTO) 2.94 x10^3/uL (1.8-6.8); NEUTROPHILS % (AUTO) 47 % (42-75); PLATELET COUNT 271 x10^3/uL (130-400); RED BLOOD COUNT 4.53 x10^6/uL (4.38-5.82); RED CELL DISTRIBUTION WIDTH 17.1 % (9.4-14.8)
[2019-06-30 02:01] LABS: INTERNATIONAL NORMALIZED RATIO 0.93 (0.93-1.1); PROTHROMBIN TIME 9.9 Seconds (9.6-11.5)
[2019-06-30 02:04] LABS: ALANINE AMINOTRANSFERASE 27 U/L (12-78); ALBUMIN 4.1 g/dL (3.4-5.0); ANION GAP 5 mmol/L (5-15); CALCIUM 9.3 mg/dL (8.5-10.1); CHLORIDE 105 mmol/L (98-107); CREATININE 2.36 mg/dL (0.7-1.3)
[2019-06-30 02:06] LABS: ALKALINE PHOSPHATASE 77 U/L (45-117); BILIRUBIN,TOTAL 0.3 mg/dL (0.2-1.0); TOTAL PROTEIN 8.1 g/dL (6.4-8.2)
--- NOTE | 2019-06-30 02:24 | NUR ---
Pt sitting up on gurney scratching his foot. Pt reminded again of need for urine sample and pt replied "I don't usually pee much".
--- NOTE | 2019-06-30 03:16 | NUR ---
Pt up and moving around room. Clean underware provided.
--- NOTE | 2019-06-30 03:21 | NUR ---
RN to room to d/c pt. Pt upset that the shelters are far [place], and that catching a bus is difficult in the middle of the ER. RN tried to provide pt with d/c papers and pt said "get the fuck out of my face".
--- NOTE | 2019-06-30 03:36 | NUR ---
Pt ambulated out of ER.
== END 2019-06-30 03:39 | disposition home or self-care (01) ==
LOC: ED 02:07
DX: I12.9 Hypertensive chronic kidney disease with stage 1 through stage 4 chronic kidney disease, or unspecified chronic kidney disease (principal); N18.9 Chronic kidney disease, unspecified; J44.9 Chronic obstructive pulmonary disease, unspecified; F17.200 Nicotine dependence, unspecified, uncomplicated
CPT/HCPCS: 36415; 80053; 80307; 83690; 85025; 85610; 86850; 86900; 99283

== ENCOUNTER 2020-09-21 23:02 | Emergency (ER) | payer MEDICAID ==
[~2020-09-21] VITALS: Ht 177.8 cm; Wt 72.0 kg
[2020-09-21 23:11] VITALS: BP 173/115
--- NOTE | 2020-09-21 23:51 | NUR ---
PT TO RADIOLOGY WITH TECH AT THIS TIME.
[2020-09-22 00:41] LABS: BASOPHILS % (AUTO) 2 % (0-1); EOSINOPHILS % (AUTO) 11 % (1-7); LYMPHOCYTES % (AUTO) 31 % (22-44); MEAN CORPUSCULAR HEMOGLOBIN 26.7 pg (27.5-34.5); MEAN CORPUSCULAR HGB CONC 33.2 g/dL (33.2-36.2); MEAN PLATELET VOLUME 6.7 fL (7.4-10.4); MONOCYTES % (AUTO) 11 % (2-9); NEUTROPHILS % (AUTO) 46 % (42-75); PLATELET COUNT 171 x10^3/uL (130-400); RED BLOOD COUNT 3.55 x10^6/uL (4.38-5.82); RED CELL DISTRIBUTION WIDTH 16.2 % (9.4-14.8)
[2020-09-22 00:43] LABS: MD NO
[2020-09-22 00:51] LABS: ANION GAP 4 mmol/L (5-15); CALCIUM 8.5 mg/dL (8.5-10.1); CHLORIDE 109 mmol/L (98-107); CREATININE 1.47 mg/dL (0.7-1.3)
[2020-09-22 00:55] LABS: TROPONIN I 0.067 ng/mL (0.000-0.045)
--- NOTE | 2020-09-22 01:38 | NUR ---
PT ESCORTED OUT BY SECURITY.
== END 2020-09-22 01:41 | disposition home or self-care (01) ==
LOC: ED 23:32
DX: S70.02XA Contusion of left hip, initial encounter (principal); F19.14 Other psychoactive substance abuse with psychoactive substance-induced mood disorder; F15.10 Other stimulant abuse, uncomplicated; I10 Essential (primary) hypertension; J44.9 Chronic obstructive pulmonary disease, unspecified; R00.0 Tachycardia, unspecified; R07.89 Other chest pain; F17.200 Nicotine dependence, unspecified, uncomplicated; Z72.9 Problem related to lifestyle, unspecified; X58.XXXA Exposure to other specified factors, initial encounter; Y93.89 Activity, other specified; Y92.89 Other specified places as the place of occurrence of the external cause; Y99.8 Other external cause status
CPT/HCPCS: 36415; 80048; 84484; 85025; 93005; 99285